=== PATIENT | male | born 1975 | race Caucasian/White ===

== ENCOUNTER → 2018-03-18 11:32 | Outpatient (CLI) | payer BC, SELFPAY ==
--- NOTE | 2018-03-18 11:43 | XR_ITS ---
XR knee RT 3V HISTORY: ITS.REASON: RT KNEE GIVES AWAY,RT KNEE PAIN ORDERING PHYSICIAN: Lore Davis PATIENT AGE: 42 years COMPARISON: None FINDINGS: No fracture or dislocation. No lytic or blastic change. Normal mineralization. No significant arthritic changes evident. No other significant findings IMPRESSION: Negative Knee
== END ==
PROVIDERS: PCP Family Medicine; Visit Provider Nurse Practitioner
DX: M25.561 Pain in right knee (principal); M25.361 Other instability, right knee
CPT/HCPCS: 73562

== ENCOUNTER → 2020-04-11 12:14 | Outpatient (CLI) | payer BC, SELFPAY ==
[2020-04-11 17:18] LABS: Coronavirus 19 IgG Antibody Negative (Negative); Coronavirus 19 IgM Antibody Negative (Negative)
[2020-04-12 13:27] LABS: Covid-19 Nasal PCR Sendout Lex NOT DETECTED
== END ==
PROVIDERS: PCP Family Medicine; Visit Provider Family Medicine
DX: Z03.818 Encounter for observation for suspected exposure to other biological agents ruled out (principal)
CPT/HCPCS: 36415; 86328; U0004

== ENCOUNTER → 2023-06-05 10:51 | Outpatient (CLI) | payer BC, SELFPAY ==
--- NOTE | 2023-06-05 10:57 | MR_ITS ---
FINAL REPORT CLINICAL HISTORY: DIZZINESS COMPARISON: None FINDINGS: Multi planar MR imaging was obtained through the brain without contrast. The midline structures appear intact. There is no evidence of Chiari malformation. On T2 and flair axial images the brain parenchyma is homogeneous. On diffusion-weighted images there is no evidence of restricted diffusion. There is mild mucoperiosteal thickening in the maxillary sinuses and ethmoid air cells. The seventh and eighth nerve root complexes are intact. IMPRESSION: Essentially unremarkable nonenhanced brain MRI. Mild mucoperiosteal thickening in the maxillary sinuses and ethmoid air cells. Reviewed, Interpreted and Dictated by Joseph Arguello MD Transcribed by Tatianna Sullivan Authenticated and [facility]
== END ==
PROVIDERS: PCP Nurse Practitioner; Visit Provider Nurse Practitioner
DX: R42 Dizziness and giddiness (principal)
CPT/HCPCS: 70551